=== PATIENT | female | born 1970 | race Two or more races ===

== ENCOUNTER 2025-02-03 09:30 | Outpatient (CLI) | payer OTHER | END 2025-02-03 09:40 | disposition home or self-care (01) | LOC: RAD 09:30 | DX: M18.0 Bilateral primary osteoarthritis of first carpometacarpal joints (principal); M25.561 Pain in right knee; M25.562 Pain in left knee ==

== ENCOUNTER 2025-02-03 10:18 | Outpatient (CLI) | payer OTHER | END 2025-02-03 10:20 | disposition home or self-care (01) | LOC: NUCLEAR 10:18 | DX: M89.9 Disorder of bone, unspecified (principal); M81.0 Age-related osteoporosis without current pathological fracture ==

== ENCOUNTER 2025-02-05 11:44 | Outpatient (CLI) | payer OTHER | END 2025-02-05 11:57 | disposition home or self-care (01) | LOC: MAMO-SONO 11:44 | DX: N60.29 Fibroadenosis of unspecified breast (principal); M18.0 Bilateral primary osteoarthritis of first carpometacarpal joints; Z12.31 Encounter for screening mammogram for malignant neoplasm of breast; D34 Benign neoplasm of thyroid gland ==